=== PATIENT | male | born 1970 | race Caucasian/White ===

== ENCOUNTER 2017-05-04 07:13 | Observation (INO) | payer OTHER ==
[~2017-05-04] VITALS: Ht 180.3 cm; Wt 109.1 kg
[~2017-05-04 07:13] MED LIST: NONE PER PT
[2017-05-04] MEDS ORDERED: MORPHINE SULFATE 4 MG/ML, 1ML ONE ×2 (07:28→08:11)
[2017-05-04] MEDS ORDERED: ONDANSETRON 2MG/ML, 2ML ONE ×3 (07:28→15:19)
[2017-05-04] MEDS ORDERED: CEFAZOLIN 2,000 MG in SODIUM CHLORIDE 0.9% 50 ML IV ONE ×2 (07:30)
[2017-05-04] MEDS ORDERED: MORPHINE SULFATE 4 MG/ML, 1ML IVPush ONE ×2 (07:30→08:30)
[2017-05-04 07:37] LABS: BASOPHILS # (AUTO) 0.07 x10^3/uL (0-0.1); BASOPHILS % (AUTO) 1 % (0-1); EOSINOPHILS # (AUTO) 0.09 x10^3/uL (0-0.4); EOSINOPHILS % (AUTO) 1 % (1-7); LYMPHOCYTES % (AUTO) 38 % (22-44); MD NO; MEAN CORPUSCULAR HEMOGLOBIN 30.3 pg (27.5-34.5); MEAN CORPUSCULAR HGB CONC 34.5 g/dL (33.2-36.2); MEAN CORPUSCULAR VOLUME 87.9 fL (81-97); MEAN PLATELET VOLUME 8.1 fL (7.4-10.4); MONOCYTES # (AUTO) 0.81 x10^3/uL (0.2-0.8); MONOCYTES % (AUTO) 7 % (2-9); NEUTROPHILS # (AUTO) 5.86 x10^3/uL (1.8-6.8); NEUTROPHILS % (AUTO) 53 % (42-75); PLATELET COUNT 287 x10^3/uL (130-400); RED BLOOD COUNT 5.48 x10^6/uL (4.38-5.82); RED CELL DISTRIBUTION WIDTH 12.5 % (9.4-14.8)
[2017-05-04] MEDS ORDERED: ASPI-691 PO (07:41)
[2017-05-04 07:47] LABS: INTERNATIONAL NORMALIZED RATIO 0.93 (0.93-1.1); PROTHROMBIN TIME 9.7 Seconds (9.6-11.5)
[2017-05-04 07:48] LABS: ALANINE AMINOTRANSFERASE 33 U/L (12-78); ALBUMIN 4.1 g/dL (3.4-5.0); ANION GAP 9 mmol/L (5-15); CALCIUM 8.8 mg/dL (8.5-10.1); CHLORIDE 106 mmol/L (98-107); CREATININE 1.27 mg/dL (0.7-1.3)
[2017-05-04 07:50] LABS: ALKALINE PHOSPHATASE 73 U/L (45-117); BILIRUBIN,TOTAL 0.5 mg/dL (0.2-1.0); TOTAL PROTEIN 7.6 g/dL (6.4-8.2)
[2017-05-04] MEDS ORDERED: DIPHTHERIA-TETANUS ADULT 0.5ML IM-VACC ONE (08:00)
[2017-05-04] MEDS ORDERED: DIPH,PERTUSS(ACELL),TET VAC/PF 0.5 ML IM-VACC ONE ×2 (08:00→08:13)
[2017-05-04] MEDS ORDERED: POTASSIUM CHLORIDE 20 MEQ in D5%-0.45% NACL 1,000 ML IV ONE (08:24)
[2017-05-04] MEDS ORDERED: ONDANSETRON 2MG/ML, 2ML IVPush PRN ×2 (08:30→16:00)
[2017-05-04] MEDS ORDERED: HYDROmorphone 1 MG/ML, 1ML IVPush PRN (08:30)
[2017-05-04] MEDS ORDERED: HYDROmorphone 2 MG/ML, 1ML ONE (12:27)
[2017-05-04 13:54] VITALS: BP 133/71
[2017-05-04] MEDS ORDERED: FENTANYL PF 250 MCG/5ML ONE (14:17)
[2017-05-04] MEDS ORDERED: MIDAZOLAM 1 MG/ML, 2ML ONE (14:17)
[2017-05-04] MEDS ORDERED: CEFAZOLIN 1,000 MG ONE (15:04)
[2017-05-04] MEDS ORDERED: KETOROLAC 30 MG/1 ML ONE ×2 (15:04→15:20)
[2017-05-04] MEDS ORDERED: PROPOFOL 10 MG/ML, 20ML ONE (15:04)
[2017-05-04] MEDS ORDERED: DEXAMETHASONE 4 MG/ML, 1ML ONE ×2 (15:12)
[2017-05-04] MEDS ORDERED: ACETAMINOPHEN 325 MG TABLET PO PRN (16:00)
[2017-05-04] MEDS ORDERED: HYDROmorphone 1 MG/ML, 1ML IV PRN (16:00)
[2017-05-04] MEDS ORDERED: MEPERIDINE/PF 25MG/0.5ML IVPush PRN (16:00)
[2017-05-04] MEDS ORDERED: ACETAMINOPHEN 650 MG/20.3 ML UDC ONE (16:00)
[2017-05-04] MEDS ORDERED: OXYcodone 5 MG/5 ML ORAL.SOL UDC ONE (16:00)
[2017-05-04] MEDS ORDERED: LABETALOL 5MG/ML, 20ML IV PRN (16:00)
[2017-05-04] MEDS ORDERED: FENTANYL PF 100 MCG/2ML ONE (16:00)
[2017-05-04] MEDS ORDERED: OXYcodone 5 MG/5 ML ORAL.SOL UDC PO PRN (16:00)
[2017-05-04] MEDS ORDERED: MIDAZOLAM 1 MG/ML, 2ML IV PRN (16:00)
[2017-05-04] MEDS ORDERED: hydrALAzine 20 MG/ML, 1ML IV PRN (16:00)
[2017-05-04] MEDS ORDERED: FENTANYL PF 100 MCG/2ML IV PRN (16:00)
[2017-05-04] MEDS ORDERED: ALBUTEROL SULFATE 2.5 MG/3 ML NPPB PRN (16:00)
[2017-05-04] MEDS ORDERED: PROMETHAZINE 25 MG/ML, 1ML IV PRN (16:00)
== END 2017-05-04 18:35 | disposition home or self-care (01) ==
LOC: ED 08:16 → EDIP 08:21
PROVIDERS: ADMIT Orthopaedic Surgery; ATTEND Orthopaedic Surgery
DX: S62.502A Fracture of unspecified phalanx of left thumb, initial encounter for closed fracture (principal); S62.232A Other displaced fracture of base of first metacarpal bone, left hand, initial encounter for closed fracture; S67.02XA Crushing injury of left thumb, initial encounter; S67.22XA Crushing injury of left hand, initial encounter; W23.0XXA Caught, crushed, jammed, or pinched between moving objects, initial encounter; Y99.0 Civilian activity done for income or pay
CPT/HCPCS: 11012; 26746; 36415; 73130; 73140; 76000; 80053; 85025; 85610; 85730; 90471; 90715; 96365; 96375; 96376; 99285; G0378; J0690; J1100; J1170; J1885; J2250; J2405; J2704; J3010; J3480

== ENCOUNTER 2020-08-10 12:54 | Emergency (ER) | payer BC, OTHER ==
[~2020-08-10] VITALS: Ht 180.3 cm; Wt 117.0 kg
[~2020-08-10 12:54] MED LIST changes: +ASPI-691 PO
--- NOTE | 2020-08-10 13:08 | NUR ---
PATIENT WALKED BACK FROM TRIAGE WITH CHIEF C/O OF LEFT WRIST INJURY. PER PATIENT HE WAS HIKING AND FELL OFF A ROCK AND INJURED LEFT WRIST. CMS INTACT, NADN, CALL LIGHT WITHIN REACH.
--- NOTE | 2020-08-10 13:32 | NUR ---
X-RAY AT BEDSIDE.
--- NOTE | 2020-08-10 14:40 | NUR ---
PATIENT SITTING IN [place] ON PHONE, NADN, CALL LIGHT WITHIN REACH. WAITING FOR CT SCAN.
--- NOTE | 2020-08-10 14:52 | NUR ---
REPORT GIVEN TO STANLEY HERNANDEZ FOR TRANSFER OF PATIENT CARE.
[2020-08-10 16:00] VITALS: BP 138/75
== END 2020-08-10 16:02 | disposition home or self-care (01) ==
LOC: ED 13:55
DX: S52.572A Other intraarticular fracture of lower end of left radius, initial encounter for closed fracture (principal); M25.532 Pain in left wrist; W01.0XXA Fall on same level from slipping, tripping and stumbling without subsequent striking against object, initial encounter; Y93.89 Activity, other specified; Y92.828 Other wilderness area as the place of occurrence of the external cause; Y99.8 Other external cause status
CPT/HCPCS: 29125; 99284